=== PATIENT | female | born 1990 | race Caucasian/White ===

== ENCOUNTER 2018-08-12 04:38 | Emergency (ER) | payer MEDICAID, SELFPAY ==
[~2018-08-12] VITALS: Ht 167.6 cm; Wt 62.9 kg
[2018-08-12] MEDS ORDERED: LIDOCAINE-MPF 2%, 2ML ONE ×2 (05:09→05:14)
[2018-08-12] MEDS ORDERED: LIDOCAINE-MPF 2%, 2ML SQ ONE (05:30)
[2018-08-12 06:20] VITALS: BP 128/78
== END 2018-08-12 06:17 | disposition home or self-care (01) ==
LOC: ED 05:33
DX: L02.415 Cutaneous abscess of right lower limb (principal)
CPT/HCPCS: 10060; 99283